=== PATIENT | male | born 1950 | race Caucasian/White ===

== ENCOUNTER 2018-05-22 11:18 | Inpatient (IN) | payer MEDICARE ==
[~2018-05-22] VITALS: Ht 182.9 cm; Wt 95.8 kg
[~2018-05-22 11:18] MED LIST: AMPH15TA PO; SERT100T5 PO; VERA180T56 PO; WARF5TAB PO
[2018-05-22 11:53] LABS: BASOPHILS # (AUTO) 0.05 x10^3/uL (0-0.1); BASOPHILS % (AUTO) 0 % (0-1); EOSINOPHILS # (AUTO) 0.18 x10^3/uL (0-0.4); EOSINOPHILS % (AUTO) 1 % (1-7); LYMPHOCYTES # (AUTO) 1.83 x10^3/uL (1-3.4); LYMPHOCYTES % (AUTO) 15 % (22-44); MD NO; MEAN CORPUSCULAR HEMOGLOBIN 31.3 pg (27.5-34.5); MEAN CORPUSCULAR HGB CONC 34.2 g/dL (33.2-36.2); MEAN CORPUSCULAR VOLUME 91.4 fL (81-97); MEAN PLATELET VOLUME 9.5 fL (7.4-10.4); MONOCYTES # (AUTO) 1.06 x10^3/uL (0.2-0.8); MONOCYTES % (AUTO) 8 % (2-9); NEUTROPHILS # (AUTO) 9.45 x10^3/uL (1.8-6.8); NEUTROPHILS % (AUTO) 75 % (42-75); PLATELET COUNT 225 x10^3/uL (130-400); RED BLOOD COUNT 4.81 x10^6/uL (4.38-5.82); RED CELL DISTRIBUTION WIDTH 13.4 % (9.4-14.8)
[2018-05-22] MEDS ORDERED: AMPICILLIN/SULBACTAM 3 GM in SODIUM CHLORIDE 0.9% 100 ML IV ONE (12:00)
[2018-05-22 12:01] LABS: ALBUMIN 3.5 g/dL (3.4-5.0); ANION GAP 6 mmol/L (5-15); CALCIUM 8.7 mg/dL (8.5-10.1); CHLORIDE 108 mmol/L (98-107); CREATININE 1.34 mg/dL (0.7-1.3)
[2018-05-22] MEDS ORDERED: BACITRACIN ZINC OINT 500U/GM, 0.9 GM ONE (12:10)
[2018-05-22] MEDS ORDERED: HYDROcodone/APAP 5/325 TABLET PO PRN (13:30)
[2018-05-22] MEDS ORDERED: morphine SULFATE 10 MG/ML, 1ML IVPush PRN (13:30)
[2018-05-22] MEDS: ENOXAPARIN 40 MG/0.4 ML SQ SCH (13:30)
[2018-05-22] MEDS ORDERED: hydrALAzine 20 MG/ML, 1ML IVPush PRN (13:30)
[2018-05-22] MEDS ORDERED: ONDANSETRON 2MG/ML, 2ML IVPush PRN (13:30)
[2018-05-22] MEDS ORDERED: TEMAZEPAM 15 MG CAPSULE PO PRN (13:30)
[2018-05-22] MEDS ORDERED: AMPICILLIN/SULBACTAM 3 GM in SODIUM CHLORIDE 0.9% 100 ML IV SCH (13:30)
[2018-05-22] MEDS ORDERED: ACETAMINOPHEN 325 MG TABLET PO PRN (13:30)
[2018-05-22] MEDS ORDERED: PHARMACY INSTRUCTION MC SCH (13:30)
[2018-05-22] MEDS ORDERED: POLYETHYLENE GLYCOL 17 GM PACKET PO PRN (13:30)
[2018-05-22] MEDS ORDERED: VANCOMYCIN PER PHARMACY MC PRN (13:30)
[2018-05-22] MEDS ORDERED: POTASSIUM CHLORIDE 20 MEQ TAB.ER.PRT ONE (13:51)
[2018-05-22] MEDS ORDERED: ENOXAPARIN 30 MG/0.3 ML ONE (13:51)
[2018-05-22] MEDS ORDERED: ENOXAPARIN 40 MG/0.4 ML ONE (13:53)
[2018-05-22] MEDS: POTASSIUM CHLORIDE 20 MEQ TAB.ER.PRT PO SCH ×2 (13:56→16:54)
[2018-05-22] MEDS: SODIUM CHLORIDE 0.9% 1,000 ML IV SCH (13:57)
[2018-05-22 14:10] VITALS: BP 109/65
[2018-05-22] MEDS ORDERED: PHARMACOKINETIC CONSULTATION MC ONE (14:30)
[2018-05-22] MEDS ORDERED: PHARMACOKINETIC MONITORING MC PRN (14:30)
[2018-05-22] MEDS: VANCOMYCIN 1,900 MG in SODIUM CHLORIDE 0.9% 250 ML IV SCH (15:17)
[2018-05-22] MEDS: AMPICILLIN/SULBACTAM 3 GM in SODIUM CHLORIDE 0.9% 100 ML IV SCH (18:33)
[2018-05-22 19:27] VITALS: BP 124/82
[2018-05-23] MEDS: SODIUM CHLORIDE 0.9% 1,000 ML IV SCH ×3 (00:06→16:00)
[2018-05-23] MEDS: AMPICILLIN/SULBACTAM 3 GM in SODIUM CHLORIDE 0.9% 100 ML IV SCH ×4 (00:07→17:50)
[2018-05-23 02:44] VITALS: BP 101/65
[2018-05-23 06:10] LABS: BASOPHILS # (AUTO) 0.05 x10^3/uL (0-0.1); BASOPHILS % (AUTO) 1 % (0-1); EOSINOPHILS # (AUTO) 0.27 x10^3/uL (0-0.4); EOSINOPHILS % (AUTO) 4 % (1-7); INTERNATIONAL NORMALIZED RATIO 1.71 (0.93-1.1); LYMPHOCYTES # (AUTO) 1.41 x10^3/uL (1-3.4); LYMPHOCYTES % (AUTO) 18 % (22-44); MD NO; MEAN CORPUSCULAR HEMOGLOBIN 31.6 pg (27.5-34.5); MEAN CORPUSCULAR HGB CONC 34.3 g/dL (33.2-36.2); MEAN CORPUSCULAR VOLUME 92.2 fL (81-97); MEAN PLATELET VOLUME 9.8 fL (7.4-10.4); MONOCYTES # (AUTO) 0.97 x10^3/uL (0.2-0.8); MONOCYTES % (AUTO) 12 % (2-9); NEUTROPHILS % (AUTO) 65 % (42-75); PLATELET COUNT 190 x10^3/uL (130-400); PROTHROMBIN TIME 17.4 Seconds (9.6-11.5); RED BLOOD COUNT 4.16 x10^6/uL (4.38-5.82); RED CELL DISTRIBUTION WIDTH 13.4 % (9.4-14.8)
[2018-05-23 06:12] LABS: CHLORIDE 115 mmol/L (98-107)
[2018-05-23 06:23] LABS: ALANINE AMINOTRANSFERASE 27 U/L (12-78); ALBUMIN 2.6 g/dL (3.4-5.0); ALKALINE PHOSPHATASE 55 U/L (45-117); ANION GAP 9 mmol/L (5-15); BILIRUBIN,TOTAL 0.6 mg/dL (0.2-1.0); CALCIUM 8.1 mg/dL (8.5-10.1); CREATININE 1.06 mg/dL (0.7-1.3); TOTAL PROTEIN 6.6 g/dL (6.4-8.2)
[2018-05-23 06:33] VITALS: BP 119/76
[2018-05-23] MEDS: VERAPAMIL ER 180MG TABLET.ER PO SCH (08:22)
[2018-05-23] MEDS: SERTRALINE 100MG TABLET PO SCH (08:22)
[2018-05-23] MEDS: WARFARIN 5 MG TABLET PO-COUM SCH (08:24)
[2018-05-23] MEDS ORDERED: POTASSIUM PHOSPHATE 22 MEQ in SODIUM CHLORIDE 0.9% 500 ML IV ONE (10:30)
[2018-05-23] MEDS: ENOXAPARIN 40 MG/0.4 ML SQ SCH (12:22)
[2018-05-23 12:31] VITALS: BP 133/82
[2018-05-23] MEDS: VANCOMYCIN 1,900 MG in SODIUM CHLORIDE 0.9% 250 ML IV SCH (15:18)
[2018-05-23] MEDS ORDERED: WARFARIN 5 MG TABLET PO-COUM SCH (18:00)
[2018-05-23 19:08] VITALS: BP 128/71
[2018-05-24] MEDS: SODIUM CHLORIDE 0.9% 1,000 ML IV SCH ×2 (02:36→11:47)
[2018-05-24 02:38] VITALS: BP 131/79
[2018-05-24] MEDS: AMPICILLIN/SULBACTAM 3 GM in SODIUM CHLORIDE 0.9% 100 ML IV SCH ×4 (05:45→20:08)
[2018-05-24 05:51] LABS: INTERNATIONAL NORMALIZED RATIO 1.62 (0.93-1.1); PROTHROMBIN TIME 16.5 Seconds (9.6-11.5)
[2018-05-24 05:56] LABS: CHLORIDE 115 mmol/L (98-107)
[2018-05-24 06:03] LABS: ANION GAP 8 mmol/L (5-15); CREATININE 1.11 mg/dL (0.7-1.3)
[2018-05-24 07:00] VITALS: BP 129/79
[2018-05-24] MEDS: VERAPAMIL ER 180MG TABLET.ER PO SCH (08:53)
[2018-05-24] MEDS: SERTRALINE 100MG TABLET PO SCH (08:53)
[2018-05-24] MEDS: WARFARIN 5 MG TABLET PO-COUM SCH (08:56)
[2018-05-24] MEDS: ENOXAPARIN 40 MG/0.4 ML SQ SCH (11:47)
[2018-05-24 14:00] VITALS: BP 151/80
[2018-05-24] MEDS: VANCOMYCIN 1,900 MG in SODIUM CHLORIDE 0.9% 250 ML IV SCH (16:03)
[2018-05-24] MEDS: TAMSULOSIN 0.4 MG CAP.ER.24H PO SCH (17:10)
[2018-05-24] MEDS ORDERED: GADOBUTROL 10 MMOL/10 ML PFS ONE (19:07)
[2018-05-24 19:55] VITALS: BP 144/76
[2018-05-25] MEDS: AMPICILLIN/SULBACTAM 3 GM in SODIUM CHLORIDE 0.9% 100 ML IV SCH ×4 (01:47→19:50)
[2018-05-25 01:52] VITALS: BP 145/71
[2018-05-25] MEDS: SODIUM CHLORIDE 0.9% 1,000 ML IV SCH (03:09)
[2018-05-25 05:11] LABS: INTERNATIONAL NORMALIZED RATIO 1.44 (0.93-1.1); PROTHROMBIN TIME 14.7 Seconds (9.6-11.5)
[2018-05-25 06:34] VITALS: BP 150/88
[2018-05-25] MEDS: VERAPAMIL ER 180MG TABLET.ER PO SCH (08:57)
[2018-05-25] MEDS: SERTRALINE 100MG TABLET PO SCH (08:58)
[2018-05-25] MEDS: TAMSULOSIN 0.4 MG CAP.ER.24H PO SCH (08:58)
[2018-05-25] MEDS: WARFARIN 5 MG TABLET PO-COUM SCH (09:00)
[2018-05-25] MEDS ORDERED: TAMSULOSIN 0.4 MG CAP.ER.24H PO SCH (09:00)
[2018-05-25] MEDS: ENOXAPARIN 40 MG/0.4 ML SQ SCH (11:43)
[2018-05-25 12:07] VITALS: BP 150/87
[2018-05-25] MEDS: VANCOMYCIN 1,900 MG in SODIUM CHLORIDE 0.9% 250 ML IV SCH (15:48)
[2018-05-25 19:40] VITALS: BP 157/91
[2018-05-26 00:25] VITALS: BP 149/71
[2018-05-26] MEDS: AMPICILLIN/SULBACTAM 3 GM in SODIUM CHLORIDE 0.9% 100 ML IV SCH ×4 (01:48→19:56)
[2018-05-26 05:27] LABS: INTERNATIONAL NORMALIZED RATIO 1.45 (0.93-1.1); PROTHROMBIN TIME 14.8 Seconds (9.6-11.5)
[2018-05-26 07:35] VITALS: BP 163/90
[2018-05-26] MEDS: TAMSULOSIN 0.4 MG CAP.ER.24H PO SCH (08:15)
[2018-05-26] MEDS: SERTRALINE 100MG TABLET PO SCH (08:15)
[2018-05-26] MEDS: VERAPAMIL ER 180MG TABLET.ER PO SCH (08:15)
[2018-05-26] MEDS: WARFARIN 5 MG TABLET PO-COUM SCH (09:00)
[2018-05-26 13:00] VITALS: BP 142/78
[2018-05-26] MEDS: VANCOMYCIN 1,900 MG in SODIUM CHLORIDE 0.9% 250 ML IV SCH (17:25)
[2018-05-26] MEDS ORDERED: WARFARIN 7.5 MG TABLET PO-COUM ONE (18:26)
[2018-05-26] MEDS: WARFARIN 7.5 MG TABLET PO-COUM SCH (18:33)
[2018-05-26 19:20] VITALS: BP 129/71
[2018-05-27 01:44] VITALS: BP 125/68
[2018-05-27] MEDS: AMPICILLIN/SULBACTAM 3 GM in SODIUM CHLORIDE 0.9% 100 ML IV SCH ×3 (02:17→14:22)
[2018-05-27 05:09] LABS: ANION GAP 8 mmol/L (5-15); BASOPHILS # (AUTO) 0.05 x10^3/uL (0-0.1); BASOPHILS % (AUTO) 1 % (0-1); CALCIUM 8.5 mg/dL (8.5-10.1); CHLORIDE 111 mmol/L (98-107); CREATININE 1.22 mg/dL (0.7-1.3); EOSINOPHILS # (AUTO) 0.36 x10^3/uL (0-0.4); EOSINOPHILS % (AUTO) 4 % (1-7); LYMPHOCYTES # (AUTO) 2.07 x10^3/uL (1-3.4); LYMPHOCYTES % (AUTO) 23 % (22-44); MD NO; MEAN CORPUSCULAR HEMOGLOBIN 30.6 pg (27.5-34.5); MEAN CORPUSCULAR HGB CONC 33.9 g/dL (33.2-36.2); MEAN CORPUSCULAR VOLUME 90.4 fL (81-97); MEAN PLATELET VOLUME 9.2 fL (7.4-10.4); MONOCYTES # (AUTO) 0.94 x10^3/uL (0.2-0.8); MONOCYTES % (AUTO) 10 % (2-9); NEUTROPHILS # (AUTO) 5.67 x10^3/uL (1.8-6.8); NEUTROPHILS % (AUTO) 62 % (42-75); PLATELET COUNT 261 x10^3/uL (130-400); RED BLOOD COUNT 4.42 x10^6/uL (4.38-5.82); RED CELL DISTRIBUTION WIDTH 13.1 % (9.4-14.8)
[2018-05-27 06:45] VITALS: BP 124/67
[2018-05-27 06:49] LABS: INTERNATIONAL NORMALIZED RATIO 1.44 (0.93-1.1); PROTHROMBIN TIME 14.7 Seconds (9.6-11.5)
[2018-05-27] MEDS: SERTRALINE 100MG TABLET PO SCH (08:06)
[2018-05-27] MEDS: TAMSULOSIN 0.4 MG CAP.ER.24H PO SCH (08:06)
[2018-05-27] MEDS: VERAPAMIL ER 180MG TABLET.ER PO SCH (08:06)
[2018-05-27] MEDS ORDERED: LACT1CAP24 PO (11:09)
[2018-05-27] MEDS ORDERED: WARF7.5T PO-COUM (11:09)
[2018-05-27] MEDS ORDERED: AMOX1TAB64 PO (11:09)
[2018-05-27] MEDS ORDERED: TAMS-11 PO (11:09)
[2018-05-27] MEDS ORDERED: AMOXICILLIN/CLAV 875-125MG TABLET PO SCH (11:15)
[2018-05-27 12:11] VITALS: BP 136/82
[2018-05-27] MEDS: WARFARIN 7.5 MG TABLET PO-COUM SCH (15:05)
== END 2018-05-27 15:40 | disposition home or self-care (01) | DRG 602 ==
LOC: ED 11:56 → EDIP 12:01 → 3NE 13:32 → DCLOUNGE 05-27 15:25
PROVIDERS: ADMIT Internal Medicine; ATTEND Internal Medicine
DX: L03.113 Cellulitis of right upper limb (principal); N17.0 Acute kidney failure with tubular necrosis; A28.0 Pasteurellosis; D68.32 Hemorrhagic disorder due to extrinsic circulating anticoagulants; D68.69 Other thrombophilia; I10 Essential (primary) hypertension; S51.851A Open bite of right forearm, initial encounter; R33.8 Other retention of urine; N40.1 Benign prostatic hyperplasia with lower urinary tract symptoms; F32.9 Major depressive disorder, single episode, unspecified; E87.6 Hypokalemia; M72.9 Fibroblastic disorder, unspecified; Z80.1 Family history of malignant neoplasm of trachea, bronchus and lung; Z86.711 Personal history of pulmonary embolism; W54.0XXA Bitten by dog, initial encounter; Y93.89 Activity, other specified; Y92.89 Other specified places as the place of occurrence of the external cause; Y99.8 Other external cause status
CPT/HCPCS: 36415; 80048; 80053; 80202; 82040; 83735; 84100; 84443; 85025; 85610; 87070; 87205; 96374; 99285; A9585; G0378; J0295; J3370; J7030; J7040; J7050